=== PATIENT | male | born 1970 | race Caucasian/White ===

== ENCOUNTER 2017-05-29 12:58 | Inpatient (IN) | payer BC ==
[~2017-05-29] VITALS: Ht 190.5 cm; Wt 131.5 kg
--- NOTE | ~2017-05-29 | EKG ---
[address] [address] ELECTROCARDIOGRAM REPORT Name: LEVI WEBER Room #: 170-11 ADM IN M.R.#: [id number] Admission: 05/29/17 Attend Phys: Reynaldo Alcantara MD Discharge: Date of : 72 Report #: [id number] THIS REPORT FOR: //name// [facility] ED Test Date: 2017-05-29 Test Time: 14:06:12 Pat Name: LEVI WEBER Department: Room: 170 Gender: M Metal Stud Framer: RAMON : 1970 Requested By: Yumiko Lee Order Number: [id number] MD: Tor Verdugo Measurements Intervals [place] Rate: 86 P: 44 CT: 142 QRS: 26 QRSD: 89 T: 3 QT: 356 QTc: 426 Interpretive Statements Sinus rhythm No previous ECG available for comparison Electronically Signed On 05-29-2017 17:13:37 CDT by Tor Verdugo [email or web address] <ELECTRONICALLY SIGNED> By: Tor Verdugo MD 05/29/17 1713 1406 1406 Tor Verdugo MD /MAGDALENA
--- NOTE | ~2017-05-29 | H ---
[facility] [place] [address] HISTORY AND PHYSICAL Name: LEVI WEBER Room #: 456-P ADM IN M.R.#: [id number] Admission: 05/29/17 Attend Phys: Reynaldo Alcantara MD Discharge: Date of : 72 Report #: [id number] THIS REPORT FOR: //name// CC: Robert Alcantara DATE OF SERVICE: 05/29/2017 CHIEF COMPLAINT: Abdominal pain. HISTORY OF PRESENT ILLNESS: The patient is a 46-year-old male with no significant past medical history who presented to the Emergency Room complaining of abdominal pain. Symptoms started on , has been constant, primarily in his epigastric area radiating to both his left upper quadrants. It has been associated with nausea. He did have one episode of vomiting in the Emergency Room. He has had a few loose stools over the last couple of days. The patient was seen by his PCP and referred to the Emergency Room. The patient denies any fever or chills. He has lost few pounds secondary to flu-like illness a couple of weeks ago. Workup in the Emergency Room included a CT scan of the abdomen and pelvis which showed an acute-appearing superior mesenteric vein thrombosis with mild surrounding mesenteric fat stranding and mesenteric edema. The bowel wall was normal without any congestion of ischemia. There was also a large lipomatous lesion in the right lateral lower chest measuring up to 10 cm. PAST MEDICAL HISTORY: No surgeries. No hypertension, no diabetes, history of hyperlipidemia in the past. No peptic ulcer disease or bleeding disorder. No history of any DVT or PE in the past. ALLERGIES: No known drug allergy. HOME MEDICATIONS: None. He was on a statin, which he stopped taking few weeks ago. FAMILY HISTORY: Significant for cancer and hypertension and coronary artery disease, no history of any PE or DVT in the family. SOCIAL HISTORY: No smoking, alcohol abuse, or illicit drug abuse. 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 REVIEW OF SYSTEMS: CONSTITUTIONAL: He has lost some weight: No fever or chills. EYES: No change in vision. THROAT: Denies any sore throat. CARDIOVASCULAR: No chest pain, dizziness, palpitation. RESPIRATORY: No cough or expectoration. GASTROINTESTINAL: As above. [address] [address] HISTORY AND PHYSICAL Name: LEVI WEBER Lynette Room #: 456-P [facility] IN [facility].#: [id number] Admission: 05/29/17 Attend Phys: Reynaldo Alcantara MD Discharge: Date of : 72 Report #: [id number] GENITOURINARY: No dysuria, hematuria. NEUROLOGIC: No focal numbness or weakness of extremities. PSYCHIATRIC: No anxiety and depression. A 12-point review of system is negative other than the positive and the negative dictated in the history of present illness and in the review of system. PHYSICAL EXAMINATION: VITAL SIGNS: Reviewed. GENERAL: The patient is awake and alert, not in acute respiratory distress. EYES: Pupils equal, reactive to light, nonicteric, conjunctivae. NECK: Supple, no JVD, no bruit, no lymphadenopathy. CARDIOVASCULAR SYSTEM: S1, S2, negative S3, no murmur. CHEST: Bilateral air entry present. Clear on auscultation. ABDOMEN: Soft, bowel sounds present, no mass, no organomegaly. There is tenderness in the epigastric area. No rebound tenderness. PERIPHERY: No pedal edema. No calf tenderness. Dorsalis pedis 1+. NEUROLOGICAL: No gross motor or sensory deficit. LABORATORY DATA: Reviewed. His liver enzymes are significant for AST of 63, ALT of 147, bilirubin is 1. Lipase 190. Creatinine is 1.3. Sodium is 135. White count is 7.7, hemoglobin is 13.6. Chest x-ray showed no acute cardiopulmonary process. CT of the abdomen and pelvis showed acute superior mesenteric vein thrombosis. ASSESSMENT AND PLAN: 1. 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 We will start the patient on Lovenox 1 mg/kg subq q.12 hours. GI will be consulted. We will obtain hypercoagulable workup. We will repeat his liver enzymes in the morning. We will place him on a clear liquid diet. The patient may need to be monitored closely for any bowel congestion. 2. Deep venous thrombosis prophylaxis, the patient will be on Lovenox. 3. Abdominal pain. The patient at present does not want any pain medication. He says the pain is tolerable. <ELECTRONICALLY SIGNED> By: Reynaldo Alcantara MD 05/30/17 1454 1607 1622 Reynaldo Alcantara MD /nt
[2017-05-29 13:40] VITALS: BP 153/95
[2017-05-29 14:11] LABS: ABSOLUTE NEUTROPHILS 4.2 thou/uL (1.4-8.2); BASOPHILS 0.6 % (0.0-2.0); EOSINOPHILS 0.4 % (0.0-3.0); HEMATOCRIT 40.1 % (42.0-52.0); HEMOGLOBIN 13.6 gm/dL (14.0-18.0); LYMPHOCYTES 36.8 % (24.0-44.0); MCH 27.2 pg (26.0-34.0); MCHC 33.8 g/dL (28.0-37.0); MCV 80.5 fL (80.0-100.0); MONOCYTES 7.4 % (1.0-8.0); PLATELET COUNT 183 thou/uL (150-400); POLYS 54.8 % (36.0-66.0); RBC 4.98 mil/uL (4.50-6.00); RDW 16.6 % (10.5-14.5); WBC 7.7 thou/uL (4.0-11.0)
[2017-05-29 14:31] LABS: ANION GAP 10 mmol/L (7-16); BUN 15 mg/dL (7-18); CALCIUM 9.1 mg/dL (8.5-10.1); CHLORIDE 101 mmol/L (98-107); CO2 24 mmol/L (21-32); CREATININE 1.3 mg/dL (0.7-1.3); GLUCOSE 122 mg/dL (74-106); POTASSIUM 3.8 mmol/L (3.5-5.1); SODIUM 135 mmol/L (136-145)
[2017-05-29 14:35] LABS: ALBUMIN 3.4 g/dL (3.4-5.0); LIPASE 119 U/L (73-393); SGOT 63 U/L (15-37); SGPT 147 U/L (30-65); TOTAL PROTEIN 7.4 g/dL (6.4-8.2); TROPONIN-I < 0.04 ng/mL (<0.06)
[2017-05-29 16:17] LABS: INR 1.1
[2017-05-29 19:11] LABS: URINE BILIRUBIN NEGATIVE (Negative); URINE BLOOD NEGATIVE (Negative); URINE CLARITY CLEAR; URINE COLOR YELLOW; URINE GLUCOSE-RANDOM* NEGATIVE (Negative); URINE KETONES 2+ (Negative); URINE LEUKOCYTES NEGATIVE (Negative); URINE NITRITE NEGATIVE (Negative); URINE PROTEIN (DIPSTICK) NEGATIVE (Negative); URINE SPECIFIC GRAVITY 1.015 (1.005-1.035); URINE UROBILINOGEN 0.2 E.U./dl (0.2-1.0)
[2017-05-29 20:56] VITALS: BP 163/92
[2017-05-29 21:20] VITALS: BP 150/90
[2017-05-29 21:30] VITALS: BP 147/79
[2017-05-30 00:09] VITALS: BP 146/80
[2017-05-30 07:05] LABS: ABSOLUTE NEUTROPHILS 3.1 thou/uL (1.4-8.2); BASOPHILS 0.7 % (0.0-2.0); EOSINOPHILS 0.7 % (0.0-3.0); HEMATOCRIT 35.2 % (42.0-52.0); HEMOGLOBIN 11.8 gm/dL (14.0-18.0); LYMPHOCYTES 43.6 % (24.0-44.0); MCH 27.1 pg (26.0-34.0); MCHC 33.7 g/dL (28.0-37.0); MCV 80.3 fL (80.0-100.0); MONOCYTES 7.7 % (1.0-8.0); PLATELET COUNT 170 thou/uL (150-400); POLYS 47.3 % (36.0-66.0); RBC 4.38 mil/uL (4.50-6.00); RDW 16.7 % (10.5-14.5); WBC 6.6 thou/uL (4.0-11.0)
[2017-05-30 07:26] LABS: ALBUMIN 2.6 g/dL (3.4-5.0); CALCIUM 8.1 mg/dL (8.5-10.1); MAGNESIUM 1.9 mg/dL (1.8-2.4); POTASSIUM 3.8 mmol/L (3.5-5.1); TOTAL BILIRUBIN 0.8 mg/dL (<0.1-1.0); TOTAL PROTEIN 6.3 g/dL (6.4-8.2)
[2017-05-30 07:43] LABS: CHOLESTEROL 155 mg/dL (<200); LIPASE 106 U/L (73-393)
[2017-05-30 07:54] VITALS: BP 131/78
[2017-05-30 15:56] VITALS: BP 135/94
[2017-05-30 19:32] VITALS: BP 138/89
[2017-05-31 04:10] VITALS: BP 139/94
[2017-05-31 07:33] LABS: ABSOLUTE NEUTROPHILS 2.6 thou/uL (1.4-8.2); BASOPHILS 0.5 % (0.0-2.0); EOSINOPHILS 1.1 % (0.0-3.0); HEMATOCRIT 35.5 % (42.0-52.0); LYMPHOCYTES 40.4 % (24.0-44.0); MCH 27.3 pg (26.0-34.0); MCHC 33.8 g/dL (28.0-37.0); MCV 80.9 fL (80.0-100.0); MONOCYTES 7.7 % (1.0-8.0); PLATELET COUNT 176 thou/uL (150-400); POLYS 50.3 % (36.0-66.0); RDW 16.5 % (10.5-14.5); WBC 5.3 thou/uL (4.0-11.0)
[2017-05-31 07:40] LABS: CALCIUM 8.1 mg/dL (8.5-10.1); CREATININE 1.1 mg/dL (0.7-1.3); MAGNESIUM 1.9 mg/dL (1.8-2.4); POTASSIUM 3.8 mmol/L (3.5-5.1)
[2017-05-31 08:00] VITALS: BP 139/87
[2017-05-31 16:00] VITALS: BP 129/92
[2017-05-31 20:25] VITALS: BP 140/81
[2017-06-01 06:09] VITALS: BP 136/90
[2017-06-01 08:07] VITALS: BP 142/88
[2017-06-01 09:45] VITALS: BP 142/88
[2017-06-01] MEDS ORDERED: XARELTO15 MG PO (14:45)
[2017-06-01 16:19] VITALS: BP 142/88
== END 2017-06-01 16:35 | disposition home or self-care (01) | DRG 441 ==
LOC: ER 12:58 → 4W 15:48 → EROBS 15:48 → 4W 21:26
PROVIDERS: Internal Medicine; Nurse Practitioner; Physician Assistant
PROC: 0DJ08ZZ Inspection of Upper Intestinal Tract, Via Natural or Artificial Opening Endoscopic (ICD-10-PCS; principal; 2017-05-31)
DX: I81 Portal vein thrombosis (principal); E43 Unspecified severe protein-calorie malnutrition; E78.5 Hyperlipidemia, unspecified; E78.00 Pure hypercholesterolemia, unspecified; E66.9 Obesity, unspecified; K76.0 Fatty (change of) liver, not elsewhere classified; K25.9 Gastric ulcer, unspecified as acute or chronic, without hemorrhage or perforation; Z82.49 Family history of ischemic heart disease and other diseases of the circulatory system; Z68.36 Body mass index [BMI] 36.0-36.9, adult; Z91.013 Allergy to seafood
CPT/HCPCS: 10040; 62110; 62900

== ENCOUNTER → 2018-03-16 | Outpatient (CLI) | payer BC ==
[~2018-03-16] MED LIST: XARELTO15 MG PO
== END ==
LOC: CAT 08:48
DX: K42.9 Umbilical hernia without obstruction or gangrene (principal); I81 Portal vein thrombosis

== ENCOUNTER → 2018-03-19 | Outpatient (CLI) | payer BC | LOC: CAT 14:19 | DX: K42.9 Umbilical hernia without obstruction or gangrene (principal); I81 Portal vein thrombosis; R93.5 Abnormal findings on diagnostic imaging of other abdominal regions, including retroperitoneum; M47.816 Spondylosis without myelopathy or radiculopathy, lumbar region ==

== ENCOUNTER 2019-12-16 12:14 | Inpatient (IN) | payer BC ==
[~2019-12-16] VITALS: Ht 190.5 cm; Wt 138.3 kg
[2019-12-16 12:18] VITALS: BP 162/99
[2019-12-16 13:28] LABS: BASOPHILS 0.5 % (0.0-2.0); EOSINOPHILS 0.1 % (0.0-3.0); HEMATOCRIT 45.7 % (42.0-52.0); HEMOGLOBIN 14.9 gm/dL (14.0-18.0); LYMPHOCYTES 9.2 % (24.0-44.0); MCH 26.9 pg (26.0-34.0); MCHC 32.6 g/dL (28.0-37.0); MCV 82.4 fL (80.0-100.0); MONOCYTES 5.7 % (1.0-8.0); PLATELET COUNT 220 thou/uL (150-400); POLYS 84.5 % (36.0-66.0); RBC 5.54 mil/uL (4.50-6.00); RDW 15.8 % (10.5-14.5); WBC 18.9 thou/uL (4.0-11.0)
[2019-12-16 13:38] LABS: ANION GAP 10 mmol/L (7-16); BUN 14 mg/dL (7-18); CALCIUM 9.1 mg/dL (8.5-10.1); CHLORIDE 100 mmol/L (98-107); CO2 27 mmol/L (21-32); CREATININE 1.4 mg/dL (0.7-1.3); GLUCOSE 198 mg/dL (74-106); POTASSIUM 4.5 mmol/L (3.5-5.1); SODIUM 137 mmol/L (136-145)
[2019-12-16 13:41] LABS: APTT 30.6 Seconds (24.5-32.8); INR 1.1; PROTIME 11.1 Seconds (9.3-11.4)
[2019-12-16 13:48] LABS: ALBUMIN 3.3 g/dL (3.4-5.0); DIRECT BILIRUBIN 0.4 mg/dL (<0.1-0.2); LIPASE 49 U/L (73-393); SGOT 11 U/L (15-37); SGPT 34 U/L (30-65); TOTAL BILIRUBIN 1.4 mg/dL (0.2-1.0); TOTAL PROTEIN 7.6 g/dL (6.4-8.2); TROPONIN-I <0.06 ng/mL (<0.06)
[2019-12-16 16:10] VITALS: BP 160/112
--- NOTE | 2019-12-16 16:19 | EKG ---
[facility] [address] [address] ELECTROCARDIOGRAM REPORT Name: LEVI WEBER Room #: [facility]#: [id number] Admission: 12/16/19 Attend Phys: Discharge: Date of : 72 Report #: [id number] THIS REPORT FOR: cc: Robert Smith MD, John H. MD Santiago, Patrick MD [facility] ~ THIS REPORT FOR: //name// [facility] ED Test Date: 2019-12-16 Test Time: 12:59:13 Pat Name: LEVI WEBER Department: Room: Gender: Counter Attendant: no : 1970 Requested By: Dameon Burns Order Number: [id number] MD: Geronimo Guajardo Measurements Intervals [place] Rate: 112 P: 55 VT: 135 QRS: 36 QRSD: 84 T: -4 QT: 305 QTc: 417 Interpretive Statements Sinus tachycardia Compared to ECG 05/29/2017 14:06:12 Sinus rhythm no longer present Electronically Signed On 12-16-2019 16:19:25 CDT by Geronimo Guajardo [email or web address] <ELECTRONICALLY SIGNED> By: Geronimo Guajardo MD, FACC 12/16/19 1619 1259 Geronimo Guajardo MD, FACC /EPI
--- NOTE | 2019-12-16 16:28 | NUR ---
FIRST ATTEMPT TO CALL FOR INPATIENT REPORT. RECEIVING NURSE IN THE MIDDLE OF PT TRMT. WILL RETURN CALL SAGAR.
[2019-12-16 17:00] VITALS: BP 157/87
[2019-12-16 18:00] VITALS: BP 156/109
--- NOTE | 2019-12-16 19:24 | NUR ---
Admitted patient from ER due to abdominal pain, transferred to bed safely. Admission education done; admit nurse Tali did Assessment and Education; admission forms signed. A+Ox4. On room air. Vital signs stable. On MS, not on telemetry; no complains and signs of chest pain, crushing sensation and heaviness. On NPO- patient informed and aware. On blood sugar monitoring- taken and recorded accordingly; Dr Lua informed that pt said he is not a diabetic- as per Dr Lua to continue blood sugar monitoring since pt's glucose from previous blood draw is elevated- pt informed. Continent of bowel and bladder; able to go to the toilet independently. Assisted in ADLs. With NS at 75cc/hr, infusing well at R FA; dressing C/D/I- IV antibiotics to be started. Med reconcilation done as per ER staff. To continue monitoring patient.
[2019-12-16 20:28] VITALS: BP 155/91
[2019-12-17 03:38] LABS: URINE BILIRUBIN NEGATIVE (Negative); URINE BLOOD 1+ (Negative); URINE CLARITY CLEAR; URINE COLOR YELLOW; URINE GLUCOSE-RANDOM* 1+ (Negative); URINE KETONES 1+ (Negative); URINE LEUKOCYTES-REFLEX NEGATIVE (Negative); URINE NITRITE-REFLEX NEGATIVE (Negative); URINE PROTEIN (DIPSTICK) 2+ (Negative); URINE SPECIFIC GRAVITY >= 1.030 (1.005-1.035)
[2019-12-17 04:40] LABS: BACTERIA-REFLEX 1-9 Few /HPF (None Seen); CASTS None Seen /LPF (None Seen); CRYSTALS None Seen /LPF (None Seen); MUCUS None Seen strn/LPF (None Seen); SQUAMOUS 0-3 Few /LPF (0-3); URINE RBC 3-10 Few /HPF (0-2); URINE WBC-REFLEX 0-5 Rare /HPF (0-5)
[2019-12-17 04:41] VITALS: BP 148/89
[2019-12-17 05:45] LABS: ABSOLUTE NEUTROPHILS 13.4 thou/uL (1.4-8.2); BASOPHILS 0.3 % (0.0-2.0); HEMATOCRIT 40.3 % (42.0-52.0); HEMOGLOBIN 13.1 gm/dL (14.0-18.0); LYMPHOCYTES 7.9 % (24.0-44.0); MCH 26.8 pg (26.0-34.0); MCHC 32.5 g/dL (28.0-37.0); MCV 82.3 fL (80.0-100.0); MONOCYTES 5.5 % (1.0-8.0); PLATELET COUNT 191 thou/uL (150-400); POLYS 86.3 % (36.0-66.0); RDW 15.3 % (10.5-14.5); WBC 15.6 thou/uL (4.0-11.0)
[2019-12-17 06:01] LABS: CALCIUM 8.6 mg/dL (8.5-10.1); CREATININE 1.3 mg/dL (0.7-1.3); MAGNESIUM 1.7 mg/dL (1.8-2.4)
--- NOTE | 2019-12-17 07:50 | NUR ---
Assumed pt care at 1900. A/OX4,VSS. Pt is up ad marecla,encouraged to epi for help as needed with IV pole and agreeable to. Pt c/o pain to abd especially with movement;order for Fentanyl 50mcg obtained,administered with relief reported. Pt reported he uses a CPAP @home;order for CPAP written and implemented. Pt is NPO with c/o mild nausea but declined need for medication. IVF infusing via RFA w/o problems. Resting quietly eyes closed at this time.
[2019-12-17 08:44] VITALS: BP 159/90
--- NOTE | 2019-12-17 11:37 | NUR ---
Patient reports that he is fatigued this morning from not sleeping well. He reports a pain of a 3/10 but does not want pain medication for it. Patient is NPO but allowed ice chips which he is eating slowly and is glad to be able to have them.
--- NOTE | 2019-12-17 12:05 | NUR ---
I have reviewed the student's documentation and administered medications with student.
--- NOTE | 2019-12-17 17:27 | NUR ---
PT A&O, VSS, NO C/O PAIN. PATIENT ON PUREED DIET HONEY THICK LIQUIDS. MEDS GIVEN WHOLE IN PUDDING. NO COUGHING NOTICED. PATIENT TAKEN OFF O2 BY RESPIRATORY. PATIENT DISCHARGED WITH LEYVA IN PLACE PER LOGISTICS CENTER MANAGER. PATIENT DISCHARGED TO [facility]. SON AT BEDSIDE. SKIN INTACT AND IV REMOVED. BELONGINGS WITH PATIENT. NO SIGNS OF DISTRESS AT DISCHARGE. PATIENT PICKED UP BY [facility].
[2019-12-17 20:04] VITALS: BP 151/82
--- NOTE | 2019-12-17 20:05 | NUR ---
PT A&OX4, VSS, NO C/O PAIN THIS SHIFT. PATIENT RESTED IN BED MOST OF DAY. PATIENT TOLERATING DIET WITH NO N/V. IV PATENT. NO SIGNS OF DISTRESS. WILL CONTINUE TO MONITOR.
--- NOTE | 2019-12-18 05:07 | NUR ---
Assumed pt care at 1900. A/OX4,VSS. C/o nausea w/o emesis at the beginning of the shift had only eaten a few bites of jello medicated with Zofran and verbalized relief and went to sleep but awokened by a heartburn sensation leading to green large emesis and thereafter verbalized feeling better declining need for further medication and went back to sleep. Resting quietly at this time w/o any distress noted,CPAP in place. IVF infusing w/o problems. Will continue to monitor pt.
[2019-12-18 05:39] LABS: HEMATOCRIT 39.6 % (42.0-52.0); HEMOGLOBIN 12.6 gm/dL (14.0-18.0); MCH 26.4 pg (26.0-34.0); MCHC 31.8 g/dL (28.0-37.0); MCV 83.1 fL (80.0-100.0); RBC 4.77 mil/uL (4.50-6.00); RDW 15.6 % (10.5-14.5); WBC 13.2 thou/uL (4.0-11.0)
[2019-12-18 05:57] LABS: CALCIUM 8.7 mg/dL (8.5-10.1); CREATININE 1.1 mg/dL (0.7-1.3); POTASSIUM 3.7 mmol/L (3.5-5.1)
[2019-12-18 07:58] VITALS: BP 151/98
--- NOTE | 2019-12-18 14:37 | NUR ---
Received awake on bed. Due medications given as prescribed.Vital signs stable. On clear liquid diet- menu given; offered from time to time, pt initially hesitant to eat because he vomitted last night, tolerated apple juice for lunch- no nausea, no vomiting and no abdominal pain noted. On MS, not on telemetry; no complains and signs of chest pain, crushing sensation and heaviness noted. On room air during day time and CPAP at night. On blood sugar monitoring, taken and recorded accordingly; with sliding scale insulin ordered. Up ad marcela, independent with ADLs. Visited by relative today- update given. With NS at 75cc/hr, infusing well at R FA- on IV antibiotics. Patient seen and examined by Dr Powers, informed him that pt vomitted last night- advised pt to still continue clear liquid diet but taking it in moderation. To continue monitoring patient.
[2019-12-18 15:53] VITALS: BP 148/88
[2019-12-18 19:40] VITALS: BP 147/92
[2019-12-19 06:11] LABS: HEMATOCRIT 38.8 % (42.0-52.0); HEMOGLOBIN 12.4 gm/dL (14.0-18.0); MCH 26.6 pg (26.0-34.0); MCV 83.1 fL (80.0-100.0); RBC 4.66 mil/uL (4.50-6.00); RDW 15.2 % (10.5-14.5); WBC 9.6 thou/uL (4.0-11.0)
[2019-12-19 06:35] LABS: CALCIUM 8.3 mg/dL (8.5-10.1); CREATININE 1.2 mg/dL (0.7-1.3); POTASSIUM 3.5 mmol/L (3.5-5.1)
--- NOTE | 2019-12-19 07:32 | NUR ---
Assumed pt care at 1900. A/OX4,VSS. Denies pain, N/V on assessment,drunk aplle juices w/o any problems. IVF infusing via RFA w.o any problems. Up ad marcela in room. C/o insomnia,melatonin ordered with some relief ordered;informed pt to request for it earlier tonight if staying. Resting w/o distress CPAP in place.
[2019-12-19 08:17] VITALS: BP 148/94
[2019-12-19 09:38] VITALS: BP 148/94
[2019-12-19 15:10] VITALS: BP 151/95
--- NOTE | 2019-12-19 18:27 | NUR ---
ASSUMED CARE OF PATIENT THIS AM. ASSESSMENT CHARTED. MEDICATIONS ADMINISTERED PER APR. VSS. PATIENT IS A&OX4 AND GETS UP WITH STAND BY ASSISTANCE D/T OCCASIONAL WEAKNESS. PATIENT RECIEVING IV ABX ON R FA W NO ISSUES. FLUIDS WERE D/C'D BY PROVIDER. PATIENT ADVANCED HIS DIET TO REGULAR AND HAS BEEN TOLERATING WELL W NO N/V/D. PATIENT WILL DISCHARGE BACK HOME ONCE MEDICALLY STABLE AFTER SHOWING TOLERANCE TO DIET. PATIENT STATED HIS STOOLS ARE NO LONGER LOOSE. PATIENT VOICES NO OTHER NEEDS AT THIS TIME AND CONTINUES TO DENY PAIN. PATIENT INSTRUCTED TO CALL FOR HELP WHEN NEEDED. WILL CONTINUE TO MONITOR AND FOLLOW PLAN OF CARE
[2019-12-19 19:25] VITALS: BP 149/97
--- NOTE | 2019-12-19 19:55 | NUR ---
I AGREE WITH NURSING ASSESSMENT AND NURSING NOTE DONE BY DANIA/CIVIL ENGINEERING SPECIALIST.
[2019-12-20 06:16] LABS: HEMOGLOBIN 12.8 gm/dL (14.0-18.0); MCH 26.9 pg (26.0-34.0); MCHC 32.9 g/dL (28.0-37.0); MCV 81.9 fL (80.0-100.0); RBC 4.76 mil/uL (4.50-6.00); RDW 14.9 % (10.5-14.5); WBC 8.2 thou/uL (4.0-11.0)
[2019-12-20 06:26] LABS: CALCIUM 8.8 mg/dL (8.5-10.1); POTASSIUM 3.5 mmol/L (3.5-5.1)
--- NOTE | 2019-12-20 06:41 | NUR ---
VSS-AFEBRILE. RESTED WELL THROUGH NIGHT WITH FEW NEEDS. NO REPORTED NAUSEA/VOMITING. CALLS APPROPRIATELY FOR ANY NEEDED ASSISTANCE
[2019-12-20] MEDS ORDERED: LEVOFLOXACIN750 MG PO (11:02)
[2019-12-20] MEDS ORDERED: FLAGYL500 M1 PO (11:02)
[2019-12-20] MEDS ORDERED: PEPCID20 MG PO (11:03)
[2019-12-20 12:25] VITALS: BP 149/97
--- NOTE | 2019-12-20 14:15 | NUR ---
PT A&OX4, VSS, DENIES PAIN AND N,V. PATIENT DISCHARGED HOME AND COMMUNICATES UNDERSTANDING OF DISCHARGE ORDERS. ALL BELONGINGS WITH PATIENT. IV REMOVED. NO SIGNS OF DISTESS AT DISCHARGE.
== END 2019-12-20 14:09 | disposition home or self-care (01) | DRG 871 ==
LOC: ER 12:14 → 4W 17:01
PROVIDERS: Nurse Practitioner; ADMIT Hospitalist; ATTEND Hospitalist
PROC: 5A09457 Assistance with Respiratory Ventilation, 24-96 Consecutive Hours, Continuous Positive Airway Pressure (ICD-10-PCS; principal; 2019-12-16)
DX: A41.9 Sepsis, unspecified organism (principal); N17.0 Acute kidney failure with tubular necrosis; K57.20 Diverticulitis of large intestine with perforation and abscess without bleeding; R73.9 Hyperglycemia, unspecified; K76.0 Fatty (change of) liver, not elsewhere classified; E86.0 Dehydration; E66.9 Obesity, unspecified; D64.9 Anemia, unspecified; E78.5 Hyperlipidemia, unspecified; Z68.38 Body mass index [BMI] 38.0-38.9, adult; Z79.01 Long term (current) use of anticoagulants; Z91.013 Allergy to seafood; Z23 Encounter for immunization
CPT/HCPCS: 10040